=== PATIENT | male | born 1985 | race Two or more races ===

== ENCOUNTER 2018-09-27 11:45 | Emergency (ER) | payer MEDICAID ==
[~2018-09-27] VITALS: Ht 162.6 cm; Wt 54.5 kg
[2018-09-27] MEDS ORDERED: PERTUSS(ACELL),DIPH,TET VAC/PF 0.5 ML VIAL IM ONE (12:45)
[2018-09-27] MEDS ORDERED: LIDOCAINE 1% 10 ML VIAL INJ ONE (12:45)
[2018-09-27 14:23] VITALS: BP 126/78
== END 2018-09-27 14:29 | disposition home or self-care (01) ==
LOC: EMS 11:45
DX: S61.211A Laceration without foreign body of left index finger without damage to nail, initial encounter (principal); F17.210 Nicotine dependence, cigarettes, uncomplicated; W45.8XXA Other foreign body or object entering through skin, initial encounter; Y93.89 Activity, other specified; Y92.89 Other specified places as the place of occurrence of the external cause; Y99.0 Civilian activity done for income or pay
CPT/HCPCS: 12001; 90471; 90715; 99283; J3490; 12002

== ENCOUNTER 2018-09-29 16:43 | Emergency (ER) | payer MEDICAID ==
[~2018-09-29] VITALS: Ht 170.2 cm; Wt 75.0 kg
[2018-09-29 17:51] VITALS: BP 135/88
== END 2018-09-29 19:01 | disposition home or self-care (01) ==
LOC: EMS 16:44
DX: S61.412D Laceration without foreign body of left hand, subsequent encounter (principal); F17.210 Nicotine dependence, cigarettes, uncomplicated; X58.XXXD Exposure to other specified factors, subsequent encounter

== ENCOUNTER 2018-10-05 19:39 | Emergency (ER) | payer MEDICAID ==
[~2018-10-05] VITALS: Ht 152.4 cm; Wt 72.7 kg
[2018-10-05 22:14] VITALS: BP 126/71
== END 2018-10-05 22:37 | disposition home or self-care (01) ==
LOC: EMS 19:39
DX: S61.211D Laceration without foreign body of left index finger without damage to nail, subsequent encounter (principal); F17.210 Nicotine dependence, cigarettes, uncomplicated; X58.XXXD Exposure to other specified factors, subsequent encounter